=== PATIENT | female | born 1955 | race American Indian/Alaskan Native ===

== ENCOUNTER 2017-03-17 11:23 | Emergency (ER) | payer MEDICAID ==
[~2017-03-17] VITALS: Ht 149.9 cm; Wt 78.5 kg
[2017-03-17 11:30] VITALS: BP 183/97
== END 2017-03-17 12:12 | disposition home or self-care (01) ==
LOC: ED 12:10
DX: S01.01XA Laceration without foreign body of scalp, initial encounter (principal); I10 Essential (primary) hypertension; W20.8XXA Other cause of strike by thrown, projected or falling object, initial encounter; Y93.89 Activity, other specified; Y92.009 Unspecified place in unspecified non-institutional (private) residence as the place of occurrence of the external cause; Y99.9 Unspecified external cause status
CPT/HCPCS: 99282